=== PATIENT | female | born 1970 | race Caucasian/White ===

== ENCOUNTER 2022-09-10 16:19 | Emergency (ER) | payer MEDICAID ==
[~2022-09-10] VITALS: Ht 170.2 cm; Wt 75.0 kg
[2022-09-10] MEDS ORDERED: ASPI-1 PO (16:25)
[2022-09-10] MEDS ORDERED: IBUP-1493 PO (16:25)
[2022-09-10] MEDS ORDERED: DULO-113 PO (16:25)
[2022-09-10] MEDS ORDERED: METH-812 PO (16:25)
[2022-09-10] MEDS ORDERED: ACET-3385 PO (16:25)
[2022-09-10] MEDS ORDERED: BACL10TA PO (16:25)
[2022-09-10] MEDS ORDERED: CIPR2.5D17 OD (17:57)
[2022-09-10] MEDS ORDERED: IBUPROFEN 600 MG TABLET PO ONE (18:00)
[2022-09-10] MEDS ORDERED: ATOG60TA PO (18:04)
[2022-09-10] MEDS ORDERED: RIME75TA PO (18:04)
[2022-09-10] MEDS ORDERED: AMIT50TA3 PO (18:04)
[2022-09-10] MEDS ORDERED: MORPHINE SULFATE 2 MG/ML SYRINGE IM ONE (18:15)
[2022-09-10 18:43] VITALS: BP 130/78
== END 2022-09-10 18:50 | disposition home or self-care (01) ==
LOC: EMS 16:19
DX: H10.9 Unspecified conjunctivitis (principal); M19.90 Unspecified osteoarthritis, unspecified site; M79.7 Fibromyalgia; G89.29 Other chronic pain; Z88.8 Allergy status to other drugs, medicaments and biological substances; Z98.890 Other specified postprocedural states
CPT/HCPCS: 99283; 96372; J2270